=== PATIENT | female | born 1965 | race Caucasian/White ===

== ENCOUNTER → 2016-08-14 | Day surgery (SDC) | payer OTHER ==
--- NOTE | 2016-08-11 10:25 | TH ---
cc: LOGAN HUANG M.D. DATE: 08/11/2016 DATE OF 1965 PROCEDURE TO BE PREFORMED: Slim lipo of the torso HISTORY OF PRESENT ILLNESS The patient is a 50-year-old female who presents today who wishes to proceeded by the contouring the torso. PAST MEDICAL HISTORY: Her past medical history is otherwise unremarkable. MEDICATIONS: The patient takes propranolol as needed. ALLERGIES NO ALLERGIES REVIEW OF SYSTEMS As in history of present illness, otherwise unremarkable. PHYSICAL EXAM CONSTITUTIONAL: General appearance. The patient is a well-developed female in no acute distress. Body habitus is within normal limits. There appear to be no deformities. Appears to have attention to grooming. HEENT: Eyes Conjunctivae and lids are within normal anatomical limits. The pupils are reactive to light and accommodation, size, and symmetry. There is no evidence of exudate, hemorrhage, or vessel change. Ears, mouth, nose, and throat The external inspection of the ears and nose fails to demonstrate any pathology, scars, lesions, or masses. Nasal mucosa, septum, and turbinates appear to be well hydrated as well as the lips and gums. No evidence of masses in the hypopharynx or submental area. RESPIRATORY: The patient shows no evidence of intercostal refractions. Otherwise, lungs are clear to auscultation without any abnormal sounds or rubs. CARDIOVASCULAR: The patient has a normal heart rate and rhythm. There is no evidence of noticed carotid bruits. Femoral pulses and pedal pulses in extremities are also within normal limits. GASTROINTESTINAL/ABDOMEN: Areas of lipodystrophy noted from the upper and lower abdomen, flanks and back. MUSCULOSKELETAL: Appears to be reasonable range of motion on the head, neck, spine, ribs, pelvis, right upper extremity, left upper extremity, right lower extremity, and left lower extremity. The muscle strength and tone appears to be equal and within accepted limits. SKIN: There is no rashes, lesions, or ulcers on the trunk, back, and extremities. NEUROLOGICAL: Examination is grossly normal. PSYCHIATRIC: The patient appears to have good orientation of time, place, and person. Does not appear to have any mood effects of depression, anxiety, or agitation. PLAN As above. MD BARBARA Castellano/angel /9:33 AM /9:42 AM
[~2016-08-14] MED LIST: ACETAMINOPHEN 1000 MG/100 ML VIAL IV ONE; LACTATED RINGER'S 1,000 ML BAG IV ONE; LACTATED RINGER'S 1000 ML INJ 1,000 ML ONE; LIDOCAINE HCL 1% PF 30 ML VIAL ONE; MEPERIDINE HCL 25 MG/ML VIAL ONE; MIDAZOLAM HCL 2 MG/2 ML VIAL ONE; ONDANSETRON HCL 4 MG/2 ML VIAL IV PUSH ONE; PROPOFOL 200 MG/20 ML AMP IV ONE; ceFAZolin INJ 1,000 MG VIAL ONE
--- NOTE | 2016-08-14 11:40 | TN ---
cc: ANATOLY CANTU M.D. DATE OF SURGERY: 08/14/2016 PREOPERATIVE DIAGNOSIS Lipodystrophy of the torso. POSTOPERATIVE DIAGNOSIS Lipodystrophy of the torso. PROCEDURE Slim lipo. SURGEON Anatoly Cantu MD ANESTHESIA LMA general. ESTIMATED BLOOD LOSS Minimal. COMPLICATIONS None. TOTAL I&O's 2500 in, 2700 out. Total joules 2020 60,000. PROCEDURE She was properly consented, marked, anesthetized. The skin was sterilized with Betadine solution and utilizing a tulip draping system this was applied. Utilizing tumescent fluid in which in 1000 ccs of normal saline 30 ccs of 1% lidocaine plain was mixed with 1 cc of epinephrine 1:1000. Out of those the tumescent was done on the upper lower anterior abdomen, flanks and upper lower back including the mons. Delivery of laser was carried out in a 2020 energy which led into a total of 60,000 joules of which 40,000 was in the abdomen anteriorly upper lower and 10,000 for each flanks and back. Suction assisted lipoplasty was done ___ 4.5 and ___ 2.5 mm cannula for a total evacuation of 2700 ccs. Each and every one of the puncture wounds that was done utilizing 11 blade was closed utilizing 5-0 Chromic suture and Steri-Strips applied. Good viability of all the tissue was noted at the end of the case. The patient was dressed with abdominal binder. She was awakened, extubated in the operating room and transferred back to postanesthesia care unit in stable condition. No complication was appreciated. The patient tolerated the procedure fairly well. MD BARBARA Castellano/DARRELL /11:04 AM /11:15 AM
== END | disposition home or self-care (01) ==
LOC: ESDC 08:04
PROVIDERS: ATTEND Plastic Surgery
DX: Z41.1 Encounter for cosmetic surgery (principal)
CPT/HCPCS: 00300; 00400; 15877; J0131; J0690; J2175; J2250; J2405; J3010; J7120